=== PATIENT | male | born 1975 | race Caucasian/White ===

== ENCOUNTER 2019-03-25 06:37 | Emergency (ER) | payer OTHER ==
[~2019-03-25] VITALS: Ht 170.2 cm; Wt 99.8 kg
[2019-03-25 06:51] VITALS: BP 129/90
--- NOTE | 2019-03-25 06:51 | NUR ---
TO BED # 11 AMBULATORY
--- NOTE | 2019-03-25 07:28 | NUR ---
PATIENT PRESENTS TO ED WITH PT STATES HE WAS AWAKEN BY HOLLOW TYPE PAIN EPIGASTRIC AREA, NON RADIATING--HAD TO SIT UP FOR COMFORT---DENIES N/V/D=---LAST BM THIS MORNING WITH NO STRAINING OR BLOOD NOTED IN STOOL. . DENIES N/V/D; SKIN IS PINK/WARM/DRY; AAOX4 WITH EVEN AND STEADY GAIT; LUNGS CLEAR BL; HR EVEN AND REGULAR; PT DENIES ANY FEVER, CP, SOB, OR COUGH AT THIS TIME; PATIENT STATES PAIN OF 8/10 AT THIS TIME; VSS; PATIENT POSITIONED FOR COMFORT; HOB ELEVATED; BEDRAILS UP X2; BED DOWN. ER MD MADE AWARE OF PT STATUS.
[2019-03-25 08:05] VITALS: BP 133/84
--- NOTE | 2019-03-25 08:07 | NUR ---
Patient discharged with v/s stable. Written and verbal after care instructions given and explained. Patient alert, oriented and verbalized understanding of instructions. Ambulatory with steady gait. All questions addressed prior to discharge. ID band removed. Patient advised to follow up with PMD. Rx of PROTONIX/ FAMOTIDINE given. Patient educated on indication of medication including possible reaction and side effects. Opportunity to ask questions provided and answered.
== END 2019-03-25 08:07 | disposition home or self-care (01) ==
LOC: MED 06:37
DX: K21.9 Gastro-esophageal reflux disease without esophagitis (principal); E11.9 Type 2 diabetes mellitus without complications; Z87.891 Personal history of nicotine dependence
CPT/HCPCS: 99283

== ENCOUNTER 2021-10-24 01:52 | Inpatient (IN) | payer OTHER, SELFPAY ==
[~2021-10-24] VITALS: Ht 170.2 cm; Wt 95.3 kg
[2021-10-24 02:25] VITALS: BP 106/82
[2021-10-24 02:57] LABS: BASOPHILS % (AUTO) 0.5 % (0.0-2.0); EOSINOPHILS % (AUTO) 0.1 % (0.0-4.0); HEMATOCRIT 46.7 % (36-52); HEMOGLOBIN 16.1 g/dL (12.0-18.0); LYMPHOCYTES # (AUTO) 0.3 K/uL (2.0-11.5); LYMPHOCYTES % (AUTO) 7.1 % (20.5-51.1); MEAN CORPUSCULAR HEMOGLOBIN 30 pg (27-31); MEAN CORPUSCULAR HGB CONC 34 g/dL (33-37); MEAN CORPUSCULAR VOLUME 86.9 fL (80-94); MONOCYTES # (AUTO) 0.3 K/uL (0.8-1.0); MONOCYTES % (AUTO) 5.9 % (1.7-9.3); NEUTROPHILS # (AUTO) 4.2 K/uL (1.8-7.7); PLATELET COUNT (AUTO) 229 K/uL (140-450); RED BLOOD CELL COUNT(AUTO) 5.38 MIL/uL (4.20-6.10); RED CELL DISTRIBUTION WIDTH 12.6 % (11.6-13.7); WHITE BLOOD COUNT (AUTO) 4.9 K/uL (4.8-10.8)
[2021-10-24 03:18] LABS: ALBUMIN 3.2 g/dL (3.4-5.0); CARBON DIOXIDE 25.7 mmol/L (21-32); CREATININE 0.9 mg/dL (0.6-1.3); LACTATE DEHYDROGENASE 251 U/L (85-227); POTASSIUM 3.7 mmol/L (3.5-5.1); TOTAL BILIRUBIN 0.4 mg/dL (0.0-1.0)
[2021-10-24 03:28] LABS: NEUTROPHILS % (AUTO) 86.4 % (42.2-75.2)
[2021-10-24] MEDS ORDERED: DEXAMETHASONE 10 MG/ML VIAL IVP ONE (03:30)
[2021-10-24] MEDS ORDERED: AZITHROMYCIN 500 MG in DEXTROSE 5% 250 ML IV ONE (03:30)
[2021-10-24] MEDS ORDERED: cefTRIAXone 1,000 MG VIAL ONE (03:40)
[2021-10-24 03:47] LABS: PROTHROMBIN TIME 9.9 secs (10.8-13.4)
[2021-10-24 03:59] LABS: APPEARANCE,URINE CLEAR (CLEAR); BILIRUBIN,URINE NEGATIVE (NEGATIVE); BLOOD, URINE NEGATIVE (NEGATIVE); COLOR,URINE YELLOW (YELLOW); LEUKOCYTE ESTERASE ,URINE NEGATIVE (NEGATIVE); NITRITE, URINE NEGATIVE (NEGATIVE); UGLUCOSE 3+ (NEGATIVE)
[2021-10-24] MEDS ORDERED: AZITHROMYCIN 500 MG INJ VIAL IV ONE (03:59)
[2021-10-24 04:37] LABS: RBC,URINE 0-5 /HPF (0-5); WBC,URINE 0-5 /HPF (0-5)
[2021-10-24 04:38] LABS: HYALINE CASTS, URINE 0-1 /LPF (None Seen)
[2021-10-24] MEDS ORDERED: ONDANSETRON 4 MG/2 ML VIAL IVP PRN (05:30)
[2021-10-24] MEDS ORDERED: MAGNESIUM OXIDE 400 MG TAB PO PRN (05:30)
[2021-10-24] MEDS ORDERED: MAG SULF 2000 MG/WATER PREMIX 50 ML IV PRN (05:30)
[2021-10-24] MEDS ORDERED: ACETAMINOPHEN 325 MG TAB PO PRN (05:30)
[2021-10-24] MEDS ORDERED: KCL 20 MEQ/WATER INJ PREMIX 200 ML IV PRN (05:30)
[2021-10-24] MEDS ORDERED: POTASSIUM CHLORIDE 10 MEQ TABER PO PRN (05:30)
[2021-10-24] MEDS ORDERED: remdesivir COMMUNICATION ORDER 1 EA MISC MC PRN (05:35)
[2021-10-24 08:04] VITALS: BP 126/80
[2021-10-24] MEDS: ENOXAPARIN 40 MG/0.4 ML SYR SUBQ SCH (08:14)
[2021-10-24] MEDS ORDERED: remdesivir CLINICAL MONITORING 1 EA MISC MC PRN (08:30)
[2021-10-24] MEDS ORDERED: DEXTROSE 50% 50 ML SYR IVP PRN (09:35)
[2021-10-24] MEDS ORDERED: REMDESIVIR. 200 MG in NACL 0.9% 100 ML IV SCH (10:00)
[2021-10-24] MEDS: BLOOD GLUCOSE MONITORING 1 DEV DEV FS SCH ×3 (10:56→21:00)
[2021-10-24 12:00] VITALS: BP 126/79
[2021-10-24] MEDS: INSULIN LISPRO SLIDING SCALE 100 UNITS/ML VIAL SUBQ PRN ×3 (13:16→22:16)
[2021-10-24 16:00] VITALS: BP 116/78
[2021-10-24 20:00] VITALS: BP 134/91
[2021-10-25] VITALS: BP 108/67
[2021-10-25 04:00] VITALS: BP 123/82
[2021-10-25] MEDS: AZITHROMYCIN 500 MG in DEXTROSE 5% 250 ML IV SCH (06:20)
[2021-10-25 06:49] LABS: BASOPHILS % (AUTO) 0.2 % (0.0-2.0); EOSINOPHILS % (AUTO) 0.1 % (0.0-4.0); HEMATOCRIT 44.9 % (36-52); HEMOGLOBIN 15.6 g/dL (12.0-18.0); LYMPHOCYTES # (AUTO) 0.7 K/uL (2.0-11.5); LYMPHOCYTES % (AUTO) 12.3 % (20.5-51.1); MEAN CORPUSCULAR HEMOGLOBIN 30 pg (27-31); MEAN CORPUSCULAR HGB CONC 35 g/dL (33-37); MEAN CORPUSCULAR VOLUME 87.1 fL (80-94); MONOCYTES # (AUTO) 0.5 K/uL (0.8-1.0); MONOCYTES % (AUTO) 8.9 % (1.7-9.3); NEUTROPHILS # (AUTO) 4.4 K/uL (1.8-7.7); NEUTROPHILS % (AUTO) 78.5 % (42.2-75.2); PLATELET COUNT (AUTO) 268 K/uL (140-450); RED BLOOD CELL COUNT(AUTO) 5.16 MIL/uL (4.20-6.10); RED CELL DISTRIBUTION WIDTH 12.8 % (11.6-13.7); WHITE BLOOD COUNT (AUTO) 5.6 K/uL (4.8-10.8)
[2021-10-25 07:16] LABS: ANION GAP 15.2 (8-16); CARBON DIOXIDE 24.9 mmol/L (21-32); CHOL/HDL RATIO 2.8 (1-4.5); CREATININE 0.8 mg/dL (0.6-1.3); MAGNESIUM 1.9 mg/dL (1.8-2.4); POTASSIUM 4.1 mmol/L (3.5-5.1); TOTAL BILIRUBIN 0.4 mg/dL (0.0-1.0)
[2021-10-25] MEDS: BLOOD GLUCOSE MONITORING 1 DEV DEV FS SCH ×4 (07:27→21:16)
[2021-10-25 08:00] VITALS: BP 104/70
[2021-10-25] MEDS: DEXAMETHASONE 10 MG/ML VIAL IVP SCH (08:24)
[2021-10-25] MEDS: INSULIN LISPRO SLIDING SCALE 100 UNITS/ML VIAL SUBQ PRN ×4 (08:25→21:17)
[2021-10-25] MEDS: ENOXAPARIN 40 MG/0.4 ML SYR SUBQ SCH (08:26)
[2021-10-25 12:00] VITALS: BP 110/72
[2021-10-25] MEDS: REMDESIVIR. 100 MG in NACL 0.9% 100 ML IV SCH (13:15)
[2021-10-25 16:00] VITALS: BP 116/76
[2021-10-25 20:00] VITALS: BP 118/79
[2021-10-25] MEDS: APIXABAN 2.5 MG TAB PO SCH (20:49)
[2021-10-26] VITALS: BP 117/72
[2021-10-26 04:00] VITALS: BP 90/53
[2021-10-26] MEDS: AZITHROMYCIN 500 MG in DEXTROSE 5% 250 ML IV SCH (05:34)
[2021-10-26 06:54] LABS: BASOPHILS % (AUTO) 0.1 % (0.0-2.0); EOSINOPHILS % (AUTO) 0.1 % (0.0-4.0); HEMATOCRIT 45.4 % (36-52); HEMOGLOBIN 15.3 g/dL (12.0-18.0); LYMPHOCYTES # (AUTO) 0.8 K/uL (2.0-11.5); LYMPHOCYTES % (AUTO) 16.2 % (20.5-51.1); MEAN CORPUSCULAR HEMOGLOBIN 30 pg (27-31); MEAN CORPUSCULAR HGB CONC 34 g/dL (33-37); MONOCYTES # (AUTO) 0.7 K/uL (0.8-1.0); MONOCYTES % (AUTO) 15.3 % (1.7-9.3); NEUTROPHILS # (AUTO) 3.2 K/uL (1.8-7.7); NEUTROPHILS % (AUTO) 68.3 % (42.2-75.2); PLATELET COUNT (AUTO) 295 K/uL (140-450); RED BLOOD CELL COUNT(AUTO) 5.16 MIL/uL (4.20-6.10); RED CELL DISTRIBUTION WIDTH 12.8 % (11.6-13.7); WHITE BLOOD COUNT (AUTO) 4.7 K/uL (4.8-10.8)
[2021-10-26 06:59] LABS: ALBUMIN 2.9 g/dL (3.4-5.0); ANION GAP 15.2 (8-16); CARBON DIOXIDE 25.2 mmol/L (21-32); CREATININE 0.9 mg/dL (0.6-1.3); MAGNESIUM 2.2 mg/dL (1.8-2.4); POTASSIUM 4.4 mmol/L (3.5-5.1); TOTAL BILIRUBIN 0.4 mg/dL (0.0-1.0)
[2021-10-26] MEDS: BLOOD GLUCOSE MONITORING 1 DEV DEV FS SCH ×4 (07:08→20:21)
[2021-10-26 08:00] VITALS: BP 105/78
[2021-10-26] MEDS: APIXABAN 2.5 MG TAB PO SCH ×2 (08:22→20:22)
[2021-10-26] MEDS: DEXAMETHASONE 10 MG/ML VIAL IVP SCH (08:22)
[2021-10-26 12:00] VITALS: BP 109/71
[2021-10-26] MEDS: REMDESIVIR. 100 MG in NACL 0.9% 100 ML IV SCH (12:02)
[2021-10-26 12:05] LABS: LACTATE DEHYDROGENASE 230 IU/L (0-214)
[2021-10-26] MEDS: INSULIN LISPRO SLIDING SCALE 100 UNITS/ML VIAL SUBQ PRN ×3 (12:20→20:25)
[2021-10-26 16:00] VITALS: BP 115/68
[2021-10-26 20:00] VITALS: BP 113/76
[2021-10-27] VITALS: BP 99/58
[2021-10-27 04:00] VITALS: BP 107/70
[2021-10-27] MEDS: AZITHROMYCIN 500 MG in DEXTROSE 5% 250 ML IV SCH (05:09)
[2021-10-27] MEDS: INSULIN LISPRO SLIDING SCALE 100 UNITS/ML VIAL SUBQ PRN ×4 (06:58→21:22)
[2021-10-27] MEDS: BLOOD GLUCOSE MONITORING 1 DEV DEV FS SCH ×4 (06:58→21:18)
[2021-10-27 07:06] LABS: BASOPHILS % (AUTO) 0.5 % (0.0-2.0); HEMATOCRIT 43.4 % (36-52); HEMOGLOBIN 14.7 g/dL (12.0-18.0); LYMPHOCYTES % (AUTO) 18.2 % (20.5-51.1); MEAN CORPUSCULAR HEMOGLOBIN 30 pg (27-31); MEAN CORPUSCULAR HGB CONC 34 g/dL (33-37); MEAN CORPUSCULAR VOLUME 87.8 fL (80-94); MONOCYTES # (AUTO) 0.8 K/uL (0.8-1.0); MONOCYTES % (AUTO) 14.6 % (1.7-9.3); NEUTROPHILS # (AUTO) 3.6 K/uL (1.8-7.7); NEUTROPHILS % (AUTO) 66.7 % (42.2-75.2); PLATELET COUNT (AUTO) 321 K/uL (140-450); RED BLOOD CELL COUNT(AUTO) 4.94 MIL/uL (4.20-6.10); RED CELL DISTRIBUTION WIDTH 12.7 % (11.6-13.7); WHITE BLOOD COUNT (AUTO) 5.4 K/uL (4.8-10.8)
[2021-10-27 07:22] LABS: ALBUMIN 2.8 g/dL (3.4-5.0); ANION GAP 13.2 (8-16); CARBON DIOXIDE 28.9 mmol/L (21-32); CREATININE 0.9 mg/dL (0.6-1.3); MAGNESIUM 2.1 mg/dL (1.8-2.4); POTASSIUM 4.1 mmol/L (3.5-5.1); TOTAL BILIRUBIN 0.4 mg/dL (0.0-1.0)
[2021-10-27 08:00] VITALS: BP 116/82
[2021-10-27] MEDS: APIXABAN 2.5 MG TAB PO SCH ×2 (08:38→21:20)
[2021-10-27] MEDS: DEXAMETHASONE 10 MG/ML VIAL IVP SCH (08:39)
[2021-10-27 12:00] VITALS: BP 118/81
[2021-10-27] MEDS: REMDESIVIR. 100 MG in NACL 0.9% 100 ML IV SCH (12:29)
[2021-10-27 16:00] VITALS: BP 102/55
[2021-10-27 20:00] VITALS: BP 103/61
[2021-10-28] VITALS: BP 96/59
[2021-10-28 04:00] VITALS: BP 87/50
[2021-10-28 06:23] LABS: LD1 FRACTION 14 % (17-32)
[2021-10-28 06:24] LABS: LD2 FRACTION 35 % (25-40); LD3 FRACTION 28 % (17-27); LD4 FRACTION 14 % (5-13); LD5 FRACTION 9 % (4-20)
[2021-10-28] MEDS: BLOOD GLUCOSE MONITORING 1 DEV DEV FS SCH ×2 (06:35→12:28)
[2021-10-28] MEDS: INSULIN LISPRO SLIDING SCALE 100 UNITS/ML VIAL SUBQ PRN ×2 (06:38→12:31)
[2021-10-28 07:15] LABS: ALBUMIN 3.2 g/dL (3.4-5.0); ANION GAP 11.8 (8-16); CARBON DIOXIDE 30.2 mmol/L (21-32); CREATININE 0.9 mg/dL (0.6-1.3); MAGNESIUM 2.2 mg/dL (1.8-2.4); TOTAL BILIRUBIN 0.4 mg/dL (0.0-1.0)
[2021-10-28 08:00] VITALS: BP 110/77
[2021-10-28] MEDS: APIXABAN 2.5 MG TAB PO SCH (09:38)
[2021-10-28] MEDS: DEXAMETHASONE 10 MG/ML VIAL IVP SCH (09:38)
[2021-10-28 10:46] LABS: HEMOGLOBIN 15.8 g/dL (12.0-18.0); MEAN CORPUSCULAR HEMOGLOBIN 30 pg (27-31); MEAN CORPUSCULAR HGB CONC 34 g/dL (33-37); MEAN CORPUSCULAR VOLUME 88.8 fL (80-94); PLATELET COUNT (AUTO) 409 K/uL (140-450); RED BLOOD CELL COUNT(AUTO) 5.29 MIL/uL (4.20-6.10); WHITE BLOOD COUNT (AUTO) 6.8 K/uL (4.8-10.8)
[2021-10-28 12:00] VITALS: BP 105/67
[2021-10-28] MEDS: REMDESIVIR. 100 MG in NACL 0.9% 100 ML IV SCH (13:00)
[2021-10-28 13:22] LABS: LYMPHOCYTES % (MANUAL) 17 % (20-46); MONOCYTES % (MANUAL) 8 % (5-12)
[2021-10-28] MEDS ORDERED: [UNRECOGNIZED DRUG - CODE] PO (14:29)
[2021-10-28] MEDS ORDERED: DEXA6TAB2 PO (14:29)
[2021-10-28 21:51] LABS: LACTATE DEHYDROGENASE 174 IU/L (0-214)
== END 2021-10-28 16:59 | disposition home or self-care (01) | DRG 137 ==
LOC: MED 01:52 → MTU 05:35
PROVIDERS: ADMIT Internal Medicine; ATTEND Internal Medicine
PROC: XW033E5 Introduction of Remdesivir Anti-infective into Peripheral Vein, Percutaneous Approach, New Technology Group 5 (ICD-10-PCS; principal; 2021-10-24)
DX: U07.1 COVID-19 (principal); J96.01 Acute respiratory failure with hypoxia; J12.82 Pneumonia due to coronavirus disease 2019; R65.10 Systemic inflammatory response syndrome (SIRS) of non-infectious origin without acute organ dysfunction; E66.9 Obesity, unspecified; E11.65 Type 2 diabetes mellitus with hyperglycemia; Z68.32 Body mass index [BMI] 32.0-32.9, adult; Z82.49 Family history of ischemic heart disease and other diseases of the circulatory system
CPT/HCPCS: 36415; 71045; 80053; 81001; 82550; 82728; 82948; 83036; 83605; 83615; 83625; 83735; 83880; 84484; 85025; 85379; 85384; 85610; 85730; 86140; 87040; 87070; 87081; 87086; 87205; 87804; 93005; 96365; 96367; 96375; 99291; J0456; J0696; J1100; J1650; J1815; J7060; Q0092; U0003